=== PATIENT | female | born 1965 | race Caucasian/White ===

== ENCOUNTER 2020-01-28 22:33 | Emergency (ER) | payer MEDICAID, SELFPAY ==
[~2020-01-28] VITALS: Ht 154.9 cm; Wt 99.8 kg
[2020-01-28 22:34] VITALS: BP 144/86
--- NOTE | 2020-01-28 22:38 | NUR ---
PT IN TENT
--- NOTE | 2020-01-28 22:45 | NUR ---
54 Y/O F PRESENTS TO ED C/O BEING EXPOSED TO COVID-19 BY SOMEONE SHE TAKES CARE OF. DENIES SOB/N/V/D. PT CAME TO ED TO GET TESTED FOR COVID-19. PT IN TENT. MHX: DIABETES, HTN, HIGH CHOLESTEROL, ANEMIA NKA
--- NOTE | 2020-01-28 22:58 | NUR ---
Patient discharged with v/s stable. Written and verbal after care instructions given and explained. Patient verbalized understanding. Ambulatory with steady gait. All questions addressed prior to discharge. Advised to follow up with PMD.
[2020-01-28 22:59] VITALS: BP 144/86
== END 2020-01-28 22:58 | disposition home or self-care (01) ==
LOC: MED 22:33 → EEVIPCON 22:33 → MED 22:58
DX: Z03.818 Encounter for observation for suspected exposure to other biological agents ruled out (principal); I10 Essential (primary) hypertension; D64.9 Anemia, unspecified
CPT/HCPCS: 99283

== ENCOUNTER 2020-11-21 04:15 | Emergency (ER) | payer MEDICAID, SELFPAY ==
[~2020-11-21] VITALS: Ht 154.9 cm; Wt 99.8 kg
[2020-11-21 04:18] VITALS: BP 156/96
--- NOTE | 2020-11-21 04:18 | NUR ---
TO BED AMBULATORY
--- NOTE | 2020-11-21 04:26 | NUR ---
PATIENT PRESENTS TO ED WITH C/O RIGHT ARM PAINX 9 MONTHS. . PT STATES "I HAVE A TEAR'. DENIES N/V/D; SKIN IS PINK/WARM/DRY; AAOX4 WITH EVEN AND STEADY GAIT; PT DENIES ANY FEVER, CP, SOB, OR COUGH AT THIS TIME; PATIENT STATES PAIN OF 0/10 AT THIS TIME; VSS; PATIENT POSITIONED FOR COMFORT; HOB ELEVATED; BEDRAILS UP X2; BED DOWN. ER MD MADE AWARE OF PT STATUS.
[2020-11-21] MEDS ORDERED: ACET-8386 PO (04:38)
[2020-11-21] MEDS ORDERED: KETOROLAC 30 MG/ML VIAL IM ONE (04:40)
[2020-11-21 05:08] VITALS: BP 156/96
== END 2020-11-21 05:08 | disposition home or self-care (01) ==
LOC: MED 04:15
DX: S49.91XA Unspecified injury of right shoulder and upper arm, initial encounter (principal); E11.9 Type 2 diabetes mellitus without complications; I10 Essential (primary) hypertension; X50.9XXA Other and unspecified overexertion or strenuous movements or postures, initial encounter; Y93.F2 Activity, caregiving, lifting; Y92.89 Other specified places as the place of occurrence of the external cause; Y99.0 Civilian activity done for income or pay
CPT/HCPCS: 96372; 99283; J1885